=== PATIENT | female | born 1945 | race Caucasian/White ===

== ENCOUNTER 2021-09-05 10:22 | Outpatient (CLI) | payer MEDICARE, OTHER, SELFPAY ==
[2021-09-05 11:58] LABS: Absolute Lymphocyte Count 1.08 X10^3/uL (0.83-4.51); Absolute Neutrophil Count 5.2 X10^3/uL (2.0-7.7); Basophil# 0.06 X10^3/uL; Basophil% 0.9 % (0-1); Eosinophil# 0.09 X10^3/uL; Eosinophils% 1.3 % (0-5); Hematocrit 35.3 % (37-47); Hemoglobin 10.7 g/dL (12.0-15.0); Lymphocyte # 1.08 X10^3/ul (0.83-4.51); Lymphocyte % 15.4 % (19-41); Mean Corp Hgb Conc 30.3 g/dL (32-36); Mean Corpuscular Hgb 23.2 pg (27.0-32.0); Mean Corpuscular Volume 76.4 fL (81-99); Mean Platelet Vol. 11.3 fl (6.2-12.0); Monocyte# 0.55 X10^3/uL; Monocyte% 7.8 % (0-10); NRBC Flagged by Analyzer 0 % (0-5); Neutrophil # 5.21 X10^3/uL (2.7-7.7); Neutrophil % 74.2 % (47-70); Platelet Count 200 K/mm3 (150-450); RBC Distribution Width SD 52.4 fl (35.1-43.9); Red Blood Count 4.62 M/mm3 (4.2-5.4)
[2021-09-05 12:18] LABS: Albumin, Serum 3.3 g/dL (3.2-5.0); Anion Gap 6 (5-15); BUN 19 mg/dL (7-18); BUN/Creat Ratio 23.8 RATIO (10-20); Calcium,Total 9.2 mg/dL (8.5-10.1); Chloride 107 mmol/L (98-107); EST Glomerular Filtration Rate 75 mL/min (>60); Est Glom Filt Rate - Afr Amer 91 mL/min (>60); Glucose 101 mg/dL (74-106); Potassium 4.1 mmol/L (3.5-5.1); Sodium Level 140 mmol/L (136-145)
== END 2021-09-05 23:59 | disposition home or self-care (01) ==
LOC: MTLAB 10:27
PROVIDERS: PCP Internal Medicine; Referring Provider Specialist; Visit Provider Specialist
DX: Z01.812 Encounter for preprocedural laboratory examination (principal); M17.11 Unilateral primary osteoarthritis, right knee
CPT/HCPCS: 36415; 80048; 82040; 85025

== ENCOUNTER 2021-09-19 08:47 | Outpatient (RCR) | payer MEDICARE, OTHER, SELFPAY | END 2021-09-29 23:59 | LOC: DC 08:47 | PROVIDERS: PCP Internal Medicine; Referring Provider Specialist; Visit Provider Specialist | DX: E11.9 Type 2 diabetes mellitus without complications (principal); E66.01 Morbid (severe) obesity due to excess calories; Z68.41 Body mass index [BMI] 40.0-44.9, adult | CPT/HCPCS: 97802 ==

== ENCOUNTER 2021-10-21 14:50 | Outpatient (RCR) | payer MEDICARE, OTHER, SELFPAY | END 2021-10-30 23:59 | LOC: DC 14:50 | PROVIDERS: PCP Internal Medicine; Referring Provider Specialist; Visit Provider Specialist | DX: E11.9 Type 2 diabetes mellitus without complications (principal); E66.01 Morbid (severe) obesity due to excess calories; Z68.41 Body mass index [BMI] 40.0-44.9, adult | CPT/HCPCS: 97803 ==

== ENCOUNTER → 2022-07-10 | Outpatient (CLI) | payer MEDICARE, OTHER, SELFPAY ==
[2022-07-10 12:52] LABS: Synovial Fld Mononuclear WBC # 0.554 10^3/ul; Synovial Fld Mononuclear WBC % 47.3 %; Synovial Fld Polynuclear WBC # 0.618 10^3/uL; Synovial Fld Polynuclear WBC % 52.7 %
[2022-07-10 12:54] LABS: RBC /Synovial Fluid 0.009 10^6/uL (0)
[2022-07-10 13:03] LABS: AUTO B FLUID DILUENT BKGD CT WBC <0.1 RBC <0.01 (W<.1,R<.01); Color / Synovial Fluid Pink (Pale Yellow); Source / Synovial Fluid LEFT KNEE
[2022-07-10 13:04] LABS: Appearance /Synovial Fluid Sl Cl (CLEAR)
[2022-07-10 14:45] LABS: Lymph 1 %; Neutrophil 8 % (0-25); Other Cell /Synovial Fluid 91 %
[2022-07-10 14:47] LABS: Body Fluid QC Type(s) BF1Q
[2022-07-14 09:12] LABS: Pathologist Comment Reviewed
== END | disposition home or self-care (01) ==
LOC: LAB 09:02 → LABSPEC 09:03
PROVIDERS: PCP Internal Medicine; Referring Provider Specialist; Visit Provider Specialist
DX: M25.462 Effusion, left knee (principal); Z96.652 Presence of left artificial knee joint
CPT/HCPCS: 87015; 87070; 87075; 87101; 87116; 87205; 87206; 89050; 89051

== ENCOUNTER 2022-10-29 07:03 | Inpatient (IN) | payer MEDICARE, OTHER, SELFPAY ==
--- NOTE | 2022-10-22 12:42 | PCM.HP.BLA ---
History and Physical History and Physical? Patient Name: Chelsy Noyola : 1945 From:? LEONA GOVEA PA-C? DATE OF PRE-OPERATIVE EXAM: 10/22/2022 DATE OF SURGERY:? 10/29/2022 SCHEDULED PROCEDURE:? Revision left total knee arthroplasty HISTORY OF PRESENT ILLNESS: Preoperative history and physical exam was performed on October 22, 2022.? This is a 77-year-old female who has had problems with her left knee for over 20 years.? Patient has had a previous left total knee arthroplasty by Dr. Jean-Baptiste in 2012.? This was followed by revision surgery in 2013 due to instability with Dr. Garrett.? Patient has had previous bone scan which does show loosening of the components.? She continues to have pain with a dull ache.? Pain is increased with going up and down stairs and walking.? She has difficulty with all activities of daily living such as bathing/showering, getting dressed, housework, shopping.? Patient has been using Tylenol for pain control.? She is unable to use nonsteroidal anti-inflammatories due to previous gastric bypass surgery.? She uses a cane for ambulatory assistance.? She has attempted past physical therapy, home exercises, rest, elevation with minimal relief.? After failing conservative measures and discussing treatment options with Dr. Vern Yo, the patient does wish to proceed with a revision left total knee arthroplasty.? We have obtain surgical clearance from the distillery supervisor Dr. Merritt.? She has history of aortic stenosis.? She has had preoperative workup.? We have also obtain surgical clearance from the primary care physician Dr. Ramirez her last A1c was 6.6.? She denies past history of DVT or pulmonary embolism.? Denies recent chest pain, shortness of breath, fevers chills or recent infections.? Patient lives home alone and is going to require postoperative assistance.? She also reports history of urinary incontinence.? Patient has medical history pertinent for type 2 diabetes mellitus, hypertension, thyroid disease, aortic stenosis, depression, chronic obstructive pulmonary disease REVIEW OF SYSTEMS: Review Of Systems: Constitutional: Denies change in appetite, fever and weight change. Cardiovasular: Reports heart murmur, but denies chest pain and irregular heartbeat. Respiratory: Reports shortness of breath, but denies cough, pneumonia, tuberculosis and wheezing. Gastrointestinal: Reports heartburn, but denies constipation, diarrhea, nausea, rectal itching, bloody stools and vomiting. Musculoskeletal: Reports pain and trouble walking, but denies leg swelling and weakness. Skin: Denies Raynaud's, history of shingles and tattoo. Neurological: Reports ambulatory dysfunction, dizziness, neuropathy, numbness/tingling and tremor. Psychiatric: Reports anxiety and schizophrenia, but denies insomnia and stress. Hematologic/Lymphatic: Reports past transfusion, but denies anemia and bleeding/bruising tendency. Reviewed and updated. PAST MEDICAL HISTORY: Advance Care Plan: Resuscitation, POA Effective Date: 09/05/2021 Past Medical History: Medical Problems: Arthritis, Diabetes, High Blood Pressure, Thyroid Disease Covid- 19 - (05/2021) Chronic Obstructive Pulmonary Disease (COPD), Depression, Aortic stenosis Accidents: None Surgical Hx: Knee Replacement Lt - (2012) KATH[facility]- LT Knee Replacement Revision - (2013) DR. ROSA GARRETT--[facility] Gastric Bypass - (2007) [facility] Anesthesia Complications: None Assistive Devices: Cane, Glasses Reviewed and updated. SOCIAL HISTORY: Social History: Marital: Single.Occupation: Retired.Work Status: Retired.Hand Dominance: Right-handed. Personal Habits:? Cigarette Use: Never Smoked Cigarettes.Smokeless Tobacco: Never Used Smokeless Tobacco.E-Cigarette Use: Never used.Alcohol: Has consumed alcohol in the past.Drug Use: Denies Use.Enjoy Exercising: Exercises 1-3 X/Week. Reviewed, no changes. VITALS: Ht: 66 Wt: 256lb Wt k.122 BMI: 41.3 BP: 128/80 Pulse: 87 Resp: 13 T: 97.6 T: 36.4C Pain Level: 3 O2SatR: 97 ALLERGIES: No Known Drug Allergy? MEDICATIONS: Biotin 10 mg 1 by mouth every day, Vitamin B12 1000 mcg 1 by mouth every day, Vitamin D3 Ultra Strength 125 mcg (5000 Ut) 1po qday, Levothyroxine Sodium 200 mcg takes A total of 250mg once daily, Metformin HCL 500 mg 1 by mouth three times a day, Lisinopril 20 mg 1 by mouth every day, Amlodipine Besylate 5 mg 1 by mouth every day, Ziprasidone HCL 60 mg 1po qday, Januvia 100 mg 1 PO qdaily PRE-OP EXAM:? General appearance:NORMAL? ? ? Other: Eyes: Conjunctivae and lids: NORMAL? Pupils: ERR Ears, Nose, Mouth, and Throat: NORMAL? Other: Inspection of lips, teeth and gums: NORMAL? ?Other: Neck: Examination of neck: no masses noted. Respiratory: Assessment of respiratory effort: NORMAL? ?Other: ?Auscultation of lungs: clear to auscultation no wheezes, rhonchi or rales. Cardiovascular:? Auscultation of heart: regular rate and rhythm, positive systolic murmur PHYSICAL EXAMINATION: Patient does walk with an antalgic gait.? She requires the use of a cane.? Previous incision is well-healed without erythema or signs of infection.? Left knee range of motion: 0 extension 105 flexion with calf to thigh.? She has 3 mm anterior translation and 1-2 mm lateral laxity and medial laxity.? Sensation intact to light touch.? Neurovascularly intact. IMAGING STUDIES: Previous bone scan has concerns for loosening of the implant. Previous left knee x-rays reveal well aligned total knee replacement with well fixed implants.? There is a PS femoral implant cemented with universal tibial baseplate and cemented tibial stem. Synovasure was negative and with aspiration no growth on synovial fluid. IMPRESSION: 1.? 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 Type 2 diabetes mellitus: Last A1c 6.6 3.? Hypertension 4.? Thyroid disease 5.? Chronic obstructive pulmonary disease 6.? Depression 7.? Aortic stenosis 8.? Morbid obesity with BMI 41.3 9. History of Iron Deficiency History and Physical Patient Name: Chelsy Rodeny: 1945 From: LEONA GOVEA PA-C DATE OF PRE-OPERATIVE EXAM: 10/22/2022 DATE OF SURGERY: 10/29/2022 SCHEDULED PROCEDURE: Revision left total knee arthroplasty HISTORY OF PRESENT ILLNESS: Preoperative history and physical exam was performed on October 22, 2022. This is a 77-year-old female who has had problems with her left knee for over 20 years. Patient has had a previous left total knee arthroplasty by Dr. Jean-Baptiste in 2012. This was followed by revision surgery in 2013 due to instability with Dr. Garrett. Patient has had previous bone scan which does show loosening of the components. She continues to have pain with a dull ache. Pain is increased with going up and down stairs and walking. She has difficulty with all activities of daily living such as bathing/showering, getting dressed, housework, shopping. Patient has been using Tylenol for pain control. She is unable to use nonsteroidal anti-inflammatories due to previous gastric bypass surgery. She uses a cane for ambulatory assistance. She has attempted past physical therapy, home exercises, rest, elevation with minimal relief. After failing conservative measures and discussing treatment options with Dr. Vern Yo, the patient does wish to proceed with a revision left total knee arthroplasty. We have obtain surgical clearance from the distillery supervisor Dr. Merritt. She has history of aortic stenosis. She has had preoperative workup. We have also obtain surgical clearance from the primary care physician Dr. Ramirez her last A1c was 6.6. She denies past history of DVT or pulmonary embolism. Denies recent chest pain, shortness of breath, fevers chills or recent infections. Patient lives home alone and is going to require postoperative assistance. She also reports history of urinary incontinence. Patient has medical history pertinent for type 2 diabetes mellitus, hypertension, thyroid disease, aortic stenosis, depression, chronic obstructive pulmonary disease REVIEW OF SYSTEMS: Review Of Systems: Constitutional: Denies change in appetite, fever and weight change. Cardiovasular: Reports heart murmur, but denies chest pain and irregular heartbeat. Respiratory: Reports shortness of breath, but denies cough, pneumonia, tuberculosis and wheezing. Gastrointestinal: Reports heartburn, but denies constipation, diarrhea, nausea, rectal itching, bloody stools and vomiting. Musculoskeletal: Reports pain and trouble walking, but denies leg swelling and weakness. Skin: Denies Raynaud's, history of shingles and tattoo. Neurological: Reports ambulatory dysfunction, dizziness, neuropathy, numbness/tingling and tremor. Psychiatric: Reports anxiety and schizophrenia, but denies insomnia and stress. Hematologic/Lymphatic: Reports past transfusion, but denies anemia and bleeding/bruising tendency. Reviewed and updated. PAST MEDICAL HISTORY: Advance Care Plan: Resuscitation, POA Effective Date: 09/05/2021 Past Medical History: Medical Problems: Arthritis, Diabetes, High Blood Pressure, Thyroid Disease Covid- 19 - (05/2021) Chronic Obstructive Pulmonary Disease (COPD), Depression, Aortic stenosis Accidents: None Surgical Hx: Knee Replacement Lt - (2012) [facility]- LT Knee Replacement Revision - (2013) DR. ROSA GARRETT--[facility] Gastric Bypass - (2007) [facility] Anesthesia Complications: None Assistive Devices: Cane, Glasses Reviewed and updated. SOCIAL HISTORY: Social History: Marital: Single.Occupation: Retired.Work Status: Retired.Hand Dominance: Right-handed. Personal Habits: Cigarette Use: Never Smoked Cigarettes.Smokeless Tobacco: Never Used Smokeless Tobacco.E-Cigarette Use: Never used.Alcohol: Has consumed alcohol in the past.Drug Use: Denies Use.Enjoy Exercising: Exercises 1-3 X/Week. Reviewed, no changes. VITALS: Ht: 66 Wt: 256lb Wt k.122 BMI: 41.3 BP: 128/80 Pulse: 87 Resp: 13 T: 97.6 T: 36.4C Pain Level: 3 O2SatR: 97 ALLERGIES: No Known Drug Allergy MEDICATIONS: Biotin 10 mg 1 by mouth every day, Vitamin B12 1000 mcg 1 by mouth every day, Vitamin D3 Ultra Strength 125 mcg (5000 Ut) 1po qday, Levothyroxine Sodium 200 mcg takes A total of 250mg once daily, Metformin HCL 500 mg 1 by mouth three times a day, Lisinopril 20 mg 1 by mouth every day, Amlodipine Besylate 5 mg 1 by mouth every day, Ziprasidone HCL 60 mg 1po qday, Januvia 100 mg 1 PO qdaily PRE-OP EXAM: General appearance:NORMAL Other: Eyes: Conjunctivae and lids: NORMAL Pupils: ERR Ears, Nose, Mouth, and Throat: NORMAL Other: Inspection of lips, teeth and gums: NORMAL Other: Neck: Examination of neck: no masses noted. Respiratory: Assessment of respiratory effort: NORMAL Other: Auscultation of lungs: clear to auscultation no wheezes, rhonchi or rales. Cardiovascular: Auscultation of heart: regular rate and rhythm, positive systolic murmur PHYSICAL EXAMINATION: Patient does walk with an antalgic gait. She requires the use of a cane. Previous incision is well-healed without erythema or signs of infection. Left knee range of motion: 0 extension 105 flexion with calf to thigh. She has 3 mm anterior translation and 1-2 mm lateral laxity and medial laxity. Sensation intact to light touch. Neurovascularly intact. IMAGING STUDIES: Previous bone scan has concerns for loosening of the implant. Previous left knee x-rays reveal well aligned total knee replacement with well fixed implants. There is a PS femoral implant cemented with universal tibial baseplate and cemented tibial stem. Synovasure was negative and with aspiration no growth on synovial fluid. IMPRESSION: 1. 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 Type 2 diabetes mellitus: Last A1c 6.6 3. Hypertension 4. Thyroid disease 5. Chronic obstructive pulmonary disease 6. Depression 7. Aortic stenosis 8. Morbid obesity with BMI 41.3 9. History of iron deficiency 10. History of bipolar in remission and history of manic depression PLAN: Dr. Vern Yo did discuss and review with the patient all treatment options including surgical versus nonsurgical options. Patient does wish to proceed with the above-stated procedure. Potential risks, benefits, and complications of the procedure were discussed in detail including but not limited to , infection, nerve and blood vessel damage, persistent pain, numbness, tingling, paresthesias, blood clot, pulmonary embolism, and requirement for possible further surgery. The patient expressed full understanding and has no further questions for the doctor. Patient does agree to proceed with the above-stated procedure and has signed the surgery consent form. POST-OP MEDICATION PLAN: Pain Medications: Discussed with the patient that all medications will be discussed upon discharge. Advised her that we will be placing her on an antibiotic upon discharge dependent upon cultures. DVT Prophylaxis: Aspirin 81 mg twice daily for 4 weeks postoperatively. Denies past history of DVT or pulmonary embolism This dictation was created using voice recognition software. Phonetic and/or grammatical errors may exist. ___ I have re-examined the patient. There are no clinical changes since date of exam. ___ See progress notes for changes. ___ Dictated on admission Date: Time: Signature: PLAN: Dr. Vern Yo did discuss and review with the patient all treatment options including surgical versus nonsurgical options.? Patient does wish to proceed with the above-stated procedure.? Potential risks, benefits, and complications of the procedure were discussed in detail including but not limited to , infection, nerve and blood vessel damage, persistent pain, numbness, tingling, paresthesias, blood clot, pulmonary embolism, and requirement for possible further surgery.? The patient expressed full understanding and has no further questions for the doctor.? Patient does agree to proceed with the above-stated procedure and has signed the surgery consent form. POST-OP MEDICATION PLAN: Pain Medications: Discussed with the patient that all medications will be discussed upon discharge.? Advised her that we will be placing her on an antibiotic upon discharge dependent upon cultures.? DVT Prophylaxis:? Aspirin 81 mg twice daily for 4 weeks postoperatively.? Denies past history of DVT or pulmonary embolism This dictation was created using voice recognition software. Phonetic and/or grammatical errors may exist. ___? I have re-examined the patient.? There are no clinical changes since date of exam. ___? See progress notes for changes. ___? Dictated on admission Date: ? ? ?Time: Signature:
[2022-10-29] VITALS (10 sets, daily range): BP systolic 101–148; BP diastolic 39–82; PULSE 70–96; RESP 14–18; TEMP 36.3–37.1; O2SAT 94–100; BMI 41.3; BMI 41.6
[2022-10-29] MEDS: Magnesium 2 GM for ERAS IV (07:57)
[2022-10-29] MEDS: Lactated Ringers 1,000 ML 999 ML IV ×2 (07:57→18:55)
[2022-10-29] MEDS: Acetaminophen 500 MG Tablet 1000 MG PO ×2 (08:18→22:38)
[2022-10-29] MEDS: Gabapentin 600 MG Tablet PO (08:18)
[2022-10-29 08:32] LABS: Bedside Glucose 152 mg/dL (74-106)
[2022-10-29] MEDS: Ipratropium/Albuterol Sulfate 3 ML AMPUL.NEB INHALATION (08:59)
--- NOTE | 2022-10-29 12:04 | NURSING ---
pt aware of surgery delay- helped her to the bathroom - back to bed
--- NOTE | 2022-10-29 14:51 | OP.PCM_ITS ---
Report of Operation Date of Procedure: 10/29/22 Pre-Operative Diagnosis: Painful left total knee replacement, aseptic loosening Post-Operative Diagnosis: Painful left total knee replacement, aseptic loosening Surgery/Procedure Performed:: Revision left total knee replacement Surgeon: Vern Yo cigarette machines mechanic: Evaristo Pablo Type of Anesthesia: General Anesthesiologist: Flavio Lake Special Medications: 2 g Ancef, 1 g TXA at incision, 1 g TXA closure, 10 mg Decadron, joint cocktail (5 mg Duramorph, 30 mL of 0.5% Ropivicaine, 1000 units of epinephrine, 30 mg of Toradol) Specimen's removed: 3 separate specimens were sent to microbiology Estimated Blood Loss (mL): 400 Fluids Replaced: 2500 mL Description of Procedure: Implants used: Femur: Runnemede triathlon size 5 total stabilized left femoral implant with 15 x 100 mm cemented stem, 10 mm distal augments medially and laterally, 5 mm posterior augments medially and laterally Tibia: Runnemede triathlon universal tibial baseplate size 4 with 15 x 50 mm cemented stem. Size C tibial cone Poly: Nati triathlon X3 13 mm TS #4 Procedure: On the date of procedure patient's left lower extremity was marked in the preoperative area. The patient was then taken back to the operating room where the patient was placed on the table in the supine position. All bony prominences were identified a well-padded. Anesthesia assumed control of the C-spine and airway and remained controlled throughout the remainder of the procedure. A tourniquet was placed on the left upper thigh and the leg was prepped in a sterile fashion. The surgeon then scrubbed at this time. Upon reentering the room LEFt lower extremity was draped in a standard orthopedic fashion. A timeout was then called and everyone agreed upon the side, the site, the procedure to be performed, patient's identity and antibiotics given. An Esmarch bandage was used to exsanguinate the extremity and the tourniquet was placed up to 250 mmHg with the knee in flexion. A midline skin incision was made using the previous incision and extending it proximally and distally to identify normal tissue planes. Medial and lateral flaps were developed appropriate releases. The standard medial parapatellar arthrotomy was made and the patella was subluxed laterally. At this time an aggressive synovectomy was performed re-creating the medial gutter first, then the suprapatellar pouch than the lateral gutter. Once this was completed the knee was flexed up an osteotome was used to remove the tibial polyethylene. The remainder of the synovium was debrided. The standard deep MCL release was done and the patella scar pad was resected and lateral releases were performed. Next our attention was directed to the femur. Wear flexible osteotomes and TPS saw were used to break up the implant cement interface. This was done both medi ally and laterally. After this is adequately lucent bone tamp was used to remove the femur component from the end of the bone. This was done with minimal bone loss. At this time attention was now directed towards the proximal tibia. Possible osteotome and TPS saw were then used to break up the proximal tibia implant interface and stacked osteotomes were used to remove the tibial implant. This was done with minimal bone loss. Our attention was then turned to the tibia where the intramedullary canal was reamed to 16 and intramedullary tibial cutting guide was used to make the appropriate tibial cut 90 degrees from the mechanical axis. A drop jayla was then used to verify the cut. A size C tibial base plate was selected. the knee was flexed and the tibial component was pinned into place and the [employer] reamer was used to ream the proximal medullary canal. The trial implant was impacted in its prepared position. Our attention was then turned back to the femur or the femur intramedullary c anal was reamed to 16 mm and the intramedullary reamer was used as a cutting guide to make our distal femoral cut. Distal femoral was made using the standard Runnemede medial epicondyle guiode to set the joint line. Cleanup cut was made we knew we would need a 10 augment medially, and 10 augment laterally. Using the previous femoral component and tibial component as a guide the size 5 4-in-1 femoral cutting guide was pinned into place in the appropriate rotation. Rotation was based on the medial epicondyles and tibial cut. Once this was pinned in place anterior cut, anterior chamfer cut, posterior cut and posterior chamfer cuts were made. Based on these cuts we knew we would need a 5 augment medially, and 5 augment laterally. The box cutting guide was then pinned into place and the box cut was made using a reciprocating saw. The appropriate trials were then placed on the femur and tibia. A trial polyethylene was trialed to ensure proper balancing and stability of the knee. Patella tracking, was then verified and corrected appropriately as needed. Our attention was then directed to the patella. The patella was stably fixed without excessive wear. We elected to keep the patient's patella. Patellar tracking was again checked and deemed appropriate. Final components were verified and opened, 6 liters of normal saline were irrigated throughout the joint under low-pressure lavage. Then the cement was mixed in a vacuum. Nati Simplex cement with tobramycin was used. The wound was copiously irrigated with normal saline. When the cement was ready the components were cemented into place starting with the tibia, we then mixed a second batch of cement to cement the femur. The trial poly component was placed and the knee was placed in full extension. All excess cement was removed in the process. Once the cement had cured the tracking, alignment and balance were verified and a size 13 mm TS polyethylene component was placed. Once the final components were placed hemostasis was obtained and a 3-minute dilute Betadine lavage performed followed by chlorhexidine lavage and finally, the wound was copiously irrigated with normal saline solution and the remainder of the periarticular injection was given. The wound was closed in a layer benitez fashion using #1 vicryl interrupted sutures for the arthrotomy, 2-0 interrupted Vicryl for the subcuticular layer and nylon sutures for final skin closure. A sterile compressive dressing was then placed. The patient was then awakened from anesthesia, transferred to the [facility] and transferred to the PACU for recovery. Post op plan DVT ppx: ASA 81mg BID, thigh high compression stockings Follow up: in office in 2 weeks for wound check PT: to start POD #0 at hospital, outpatient PT should be arranged. Patient replaced on doxycycline 100 mg p.o. twice daily as we follow cultures My physician office manager executive assistant was a vital part of this case. He was important in appropriate retraction during the case, and protection of soft tissues during bony cuts. His intimate knowledge of the case and my steps aided in safe and expedient completion of the procedure as well as appropriate position of the leg during the case. He was also vital in assisting with closure under my direct supervision. Complications No intraoperative complications Admit VTE Documentation VTE Present on Admission: No VTE Mechan Device Prophylaxis: SCD's and Thigh High JOSH Hose VTE Pharm Prophylaxis ordered?: Yes
[2022-10-29] MEDS: Cefazolin 2 GM in 0.9% Normal Saline 100 ML IV (14:54)
[2022-10-29] MEDS: dexAMETHasone 10 MG/ML Vial IV (15:02)
[2022-10-29] MEDS: TXA 1000mg in NS100 100ml (IVPB at Closure) 660 MG IV (17:37)
[2022-10-29] MEDS: TXA 1000mg in NS100 100ml (IVPB at Incision) 660 MG IV (17:37)
[2022-10-29] MEDS: Joint Pain Solution (NO KETOROLAC) IV (17:47)
[2022-10-29 19:20] LABS: Bedside Glucose 267 mg/dL (74-106)
[2022-10-29] MEDS: Insulin Lispro 100 UNIT/ML INSULN.PEN SC ×2 (19:21→22:44)
--- NOTE | 2022-10-29 19:25 | RAD_ITS ---
STUDY: X-RAY - LEFT KNEE REASON FOR EXAM: Female, 77 years old. post op -- AP and Lateral xray of operative knee in PACU TECHNIQUE: 2 view(s) of the knee. COMPARISON: None. FINDINGS: Normal visualized distal femur. Normal visualized proximal tibia and fibula. Normal proximal tibiofibular articulation. Status post recent knee arthroplasty with subcutaneous emphysema.. The soft tissue structures are unremarkable. RAD/Knee 1 or 2 Views IMPRESSION: Status post recent total knee arthroplasty. Electronically Signed: Kunal Irving MD at 19:48 EDT ,
--- NOTE | 2022-10-29 20:56 | PCM.PN.HOSP ---
Reason for Visit Reason for Visit: Diagnoses Encounter for other preprocedural examination (10/29/22) Subjective Subjective Patient is 77-year-old female with a significant history of arthritis;COPD; aortic stenosis; hypertension; diabetes mellitus; hypothyroidism and depression/ mood disorder who is post operative day 0 for a revision of left total knee arthroplasty. Internal medicine service has been consulted for postop med management. Patient complains of postoperative pain of the left knee. Objective Data Objective Data Vital Signs: Vital Signs Temp Pulse Resp BP Pulse Ox O2 Del Method O2 Flow Rate 97.4 F L 86 14 116/46 L 99 Nasal Cannula 4 10/29/22 20:23 10/29/22 20:23 10/29/22 20:23 10/29/22 20:23 10/29/22 20:23 10/29/22 20:23 10/29/22 20:23 Oxygen Flow Rate (L/min) 4 Oxygen Delivery Method Nasal Cannula Weight: 117.072 kg Body Mass Index (BMI) 41.6 Intake & Output: Intake and Output for Last 24 Hours 10/27/22 10/28/22 10/29/22 23:59 23:59 23:59 Intake Total 2214 / 2214 Balance 2214 / 2214 Lab / Micro Data Labs: Laboratory Results - last 24 hr 10/29/22 08:01: POC Glucose 152 H 10/29/22 19:00: POC Glucose 267 H Micro: Microbiology 10/22/22 13:10 Swab (Method) Nasal Screen MRSA/MSSA - Final Radiography Diagnostic Testing: Radiology Impression Knee X-Ray 10/29/22 19:25 IMPRESSION: Status post recent total knee arthroplasty. Electronically Signed: Kunal Irving MD at 19:48 EDT , Physical Exam Narrative Physical exam: General: Well-nourished, well-developed. Head: Normocephalic, atraumatic, no tenderness Eyes: Vision is grossly intact. EOMI ENT, no trauma, moist mucous membranes, no rhinorrhea Neck: Nontender, No thyromegaly. CVS: Regular rate and rhythm. S1-S2 present. No murmur, gallop or rub. Respiratory : clear to auscultation bilaterally, chest wall nontender Abdomen: Soft, nontender, nondistended, normal bowel sounds, no masses : Deferred Back: Nontender, no CVA tenderness. Extremities:Left knee with polar pack. Right knee with no polar pack. Skin: Normal color, no trauma, abrasions Neuro: Alert, oriented, cranial nerves II through XII grossly intact. Psychiatry: Normal mood. Normal affect. Not depressed. Not anxious. Assessment & Plan Assessment/Plan (1) Status post revision of total replacement of left knee: PLAN: Plan Status post revision of the prior placement of left knee Postop day 0 Agrees with Tylenol; oxycodone and morphine. Receiving Doxycycline ordered by orthopedic surgery. Diabetes mellitus Blood glucose is not within goal. Home Tradjenta and metformin continued. Accu-Chek with correction scale insulin ordered by orthopedic surgery, agrees. COPD Stable Hypothyroidism Stable. Synthroid continued Hypertension Stable Amlodipine and lisinopril continued. Trend BP Depression/mood disorder/adjustment failure Leena ordered Stable DVT prophylaxis Receiving aspirin 80 mg twice daily by orthopedic surgery. Time spent in the patient's overall evaluation,decision-making process, review of diagnostic data, adjustment of management, discussion with other providers, nursing nursing and ancillary staff involved in patient's care documentation, 25 minutes. Thank you for the consult. Internal medicine service will continue to follow. Charges/Coding Visit Charges Office Visits / Consults: 11674 OV L3 Est
[2022-10-29 21:47] LABS: Bedside Glucose 280 mg/dL (74-106)
--- NOTE | 2022-10-29 22:31 | NURSING ---
Pt states she is not able to wear sebas hose because of the size of her legs. Pt also states she was told to do bad with therapy so she can go to [facility] in [place]. This RN encouraged pt to do her best with therapy.
[2022-10-29] MEDS: Senna/Docusate Sodium 1 Tablet 2 TABLET PO (22:38)
[2022-10-29] MEDS: Lisinopril 20 MG Tablet PO (22:39)
[2022-10-29] MEDS: Ziprasidone HCl 20 MG Capsule 60 MG PO (22:39)
[2022-10-29 23:11] LABS: Bedside Glucose 296 mg/dL (74-106)
[2022-10-29] MEDS: Cefazolin 1 GM/50 ML BAG IV (23:14)
[2022-10-29] MEDS: Ensure Surgery 237 ML LIQUID PO (23:18)
[2022-10-30] VITALS (7 sets, daily range): BP systolic 106–134; BP diastolic 52–65; PULSE 74–87; RESP 16–18; TEMP 36.4–37; O2SAT 93–98
[2022-10-30] MEDS: Doxycycline 100 MG CAPSULE PO ×3 (01:06→21:08)
[2022-10-30] MEDS: Levothyroxine 125 MCG Tablet 250 MCG PO (05:03)
[2022-10-30] MEDS: Acetaminophen 500 MG Tablet 1000 MG PO ×3 (05:03→21:08)
[2022-10-30] MEDS: Cefazolin 1 GM/50 ML BAG IV (06:08)
[2022-10-30] MEDS: Insulin Lispro 100 UNIT/ML INSULN.PEN SC ×2 (06:40→21:10)
[2022-10-30 06:55] LABS: Hematocrit 27.6 % (37-47); Hemoglobin 8.5 g/dL (12.0-15.0); Mean Corp Hgb Conc 30.8 g/dL (32-36); Mean Corpuscular Hgb 26.6 pg (27.0-32.0); Mean Corpuscular Volume 86.5 fL (81-99); Mean Platelet Vol. 12.6 fl (6.2-12.0); Platelet Count 174 K/mm3 (150-450); RBC Distribution Width CV 14.7 % (11.6-14.6); RBC Distribution Width SD 46.7 fl (35.1-43.9); Red Blood Count 3.19 M/mm3 (4.2-5.4); White Blood Count 13.6 K/mm3 (4.4-11.0)
[2022-10-30 07:02] LABS: Bedside Glucose 304 mg/dL (74-106)
[2022-10-30 07:16] LABS: Anion Gap 3 (5-15); BUN 23 mg/dL (7-18); BUN/Creat Ratio 26.4 RATIO (10-20); Calcium,Total 7.8 mg/dL (8.5-10.1); Chloride 102 mmol/L (98-107); Creatinine, Serum 0.87 mg/dL (0.55-1.02); EST Glomerular Filtration Rate 67 mL/min (>60); Est Glom Filt Rate - Afr Amer 82 mL/min (>60); Glucose 323 mg/dL (74-106); Potassium 4.7 mmol/L (3.5-5.1); Sodium Level 133 mmol/L (136-145)
[2022-10-30] MEDS: Ensure Surgery 237 ML LIQUID PO ×3 (07:48→16:39)
[2022-10-30] MEDS: Cholecalciferol (Vit D3) 125 MCG CAPSULE (5,000 UNITS) PO (07:48)
[2022-10-30] MEDS: Cyanocobalamin 500 MCG Tablet 1000 MCG PO (07:48)
[2022-10-30] MEDS: LINAGLIPTIN 5 MG TABLET PO (07:48)
[2022-10-30] MEDS: Famotidine 20 MG Tablet PO (07:50)
[2022-10-30] MEDS: Senna/Docusate Sodium 1 Tablet 2 TABLET PO ×2 (07:50→21:07)
[2022-10-30] MEDS: metFORMIN HCl 500 MG Tablet PO ×3 (07:50→16:38)
--- NOTE | 2022-10-30 10:52 | PN.HOSP_ITS ---
Reason for Visit Reason for Visit: Diagnoses Encounter for other preprocedural examination (10/29/22) Presence of left artificial knee joint (10/29/22) Subjective Subjective Patient feeling fair, sore but no other acute complaints, passing gas, no chest pain or shortness of breath Objective Data Objective Data Vital Signs: Vital Signs Temp Pulse Resp BP Pulse Ox O2 Del Method O2 Flow Rate 97.5 F L 74 16 106/57 L 95 Room Air 3 10/30/22 08:56 10/30/22 08:56 10/30/22 08:56 10/30/22 08:56 10/30/22 08:56 10/30/22 08:56 10/29/22 22:48 Oxygen Flow Rate (L/min) 3 Oxygen Delivery Method Room Air Weight: 117.072 kg Body Mass Index (BMI) 41.6 Intake & Output: Intake and Output for Last 24 Hours 10/28/22 10/29/22 10/30/22 23:59 23:59 23:59 Intake Total 3484 / 3484 240.25 / 240.25 Balance 3484 / 3484 240.25 / 240.25 Lab / Micro Data 10/30/22 06:10 10/30/22 06:10 Labs: Laboratory Results - last 24 hr 10/29/22 19:00: POC Glucose 267 H 10/29/22 21:25: POC Glucose 280 H 10/29/22 22:37: POC Glucose 296 H 10/30/22 06:10: WBC 13.6 H, RBC 3.19 L, Hgb 8.5 L, Hct 27.6 L, MCV 86.5, MCH 26.6 L, MCHC 30.8 L, RDW Std Deviation 46.7 H, RDW Coeff of Rahel 14.7 H, Plt Count 174, MPV 12.6 H, Sodium 133 L, Potassium 4.7, Chloride 102, Carbon Dioxide 28.0, Anion Gap 3 L, BUN 23 H, Creatinine 0.87, Estim Creat Clear Calc 52.30, Est GFR (MDRD) Af Amer 82, Est GFR (MDRD) Non-Af 67, BUN/Creatinine Ratio 26.4 H , Glucose 323 H, Calcium 7.8 L 10/30/22 06:38: POC Glucose 304 H Micro: Microbiology 10/22/22 13:10 Swab (Method) Nasal Screen MRSA/MSSA - Final Radiography Diagnostic Testing: Radiology Impression Knee X-Ray 10/29/22 19:25 IMPRESSION: Status post recent total knee arthroplasty. Electronically Signed: Kunal Irving MD at 19:48 EDT , Physical Exam Narrative General: Alert, oriented, no apparent distress HEENT: Atraumatic, normocephalic Eyes: Anicteric, normal conjunctiva, extraocular movements grossly intact Neck: Supple Respiratory: Clear to auscultation bilaterally, normal respiratory effort Cardiovascular: Regular rate, systolic ejection murmur to the left of the sternum GI: Soft, nontender, nondistended Extremities: Ice pack on left knee Musculoskeletal: Moving all extremities Neuro: No overt focal neurological deficits Skin: No rashes appreciated Psych: Cooperative Assessment & Plan Assessment/Plan (1) Status post revision of total replacement of left knee: PLAN: Plan #Status post revision of the prior placement of left knee Postop day 0 Agrees with Tylenol; oxycodone and morphine. Receiving Doxycycline ordered by orthopedic surgery. -10/30: Postop day 1, patient to work with physical therapy, ultimately suspect she will need placement. Pain control and doxycycline per primary #Mixed anemia, chronic component of iron deficiency anemia per hx with post op anemia -In physical chart there was a hemoglobin of 12.6 earlier this month and today is 8.5, no active exsanguination noted and patient with no acute complaints -We will check again in the a.m., continue B12, would benefit from iron suppleme ntation as well #Diabetes mellitus type II Blood glucose is not within goal. Home Tradjenta and metformin continued. Accu-Chek with correction scale insulin -10/30: Continue sliding scale and oral medications, was hyperglycemic this morning but may impart be reactive, will consider increasing insulin correction factor if patient continues to be hyperglycemic, may need further adjustments on outpatient basis #COPD Stable #Hypothyroidism Stable. Synthroid continued #Hypertension Stable Amlodipine and lisinopril continued. Trend BP #Depression/mood disorder/adjustment failure Leena ordered Stable DVT prophylaxis Receiving aspirin 80 mg twice daily by orthopedic surgery. Time spent in the patient's overall evaluation,decision-making process, review of diagnostic data, adjustment of management, discussion with other providers, nursing nursing and ancillary staff involved in patient's care documentation, 36 minutes Charges/Coding Visit Charges Inpatient E&M: 23961 Subs Hosp L2
--- NOTE | 2022-10-30 11:20 | CASEMGMT ---
DEA MARTINES Assessment: Face to Face with pt for initial transition planning/care coordination assessment. DEA MARTINES introduced self and role at [facility], pt voices understanding and consents to assessment. Pt is A/O x4 and answers all questions appropriately at this time. Pt sitting up in chair in no distress. Care providers, pharmacy, and demographics verified/updated. Admitting Dx: Left total knee revision PCP:James Specialists:Srinath, ortho; Pollo, cardio; Brent, endo; Zuñiga, psych Preferred Pharmacy: [facility] Retail Insurance: Miriam Noyola dtr Prescription Benefit: yes LNOK: Miriam Noyola dtr Living Arrangements: Pt lives alone in a single story home with 3 steps to enter. Pt reports she was I in ADL's and denies concerns at home. Pt states she cannot return home post surgery prior to rehab. Transportation: Pt drives self and denies concerns with transportation. DME/HHC/SNF: Pt has a grab bar by the toilet and bathtub, bath seat, HH shower, FWW and canes. Pt denies hx of HHC. Pt reports she has been to [facility] after each surgery in the past and would like to return there. Pt is aware that the SW will be made aware of her request for [facility]. Updated . Pt states no further concerns/needs. CM to follow. Advised pt to ask CM if any further question/concerns/needs arise, voices understanding. Pt Goal: SNF- [facility] for therapy Plan: SNF
--- NOTE | 2022-10-30 11:37 | CASEMGMT ---
Discharge Planning Referral sent to [place] via [facility]. Veronica Lyons, Discharge Planning Asst.
[2022-10-30 11:45] LABS: Bedside Glucose 149 mg/dL (74-106)
--- NOTE | 2022-10-30 11:54 | PN.ORTHO_ITS ---
Subjective Subjective The patient was sitting in bedside chair upon examination. Patient denies any chest pain, shortness of breath, dizziness, lightheadedness, nausea or vomiting, or calf pain. Pain is controlled on medications. No adverse overnight events. Patient has worked with physical therapy this morning. She complains of some stability issues with her left knee. She did receive postoperative block. She has also had past history of gastric bypass and is unable to take anti- inflammatories. She has also had history of iron deficiency. She is unable to take oral iron as she does not absorb this very well from her previous gastric bypass. She has had past iron infusions. She has seen a drop in her hemoglobin from 12.6 preoperatively to 8.5 today. Overall her vitals have been stable. She denies any dizziness or lightheadedness when she is up walking. Case was discussed with medicine. Medicine is ordering iron infusion today. We will also begin folic acid. Patient does live home alone and will need assistance upon discharge. She had revision total knee arthroplasty on her left knee. Objective Data Objective Data Vital Signs: Vital Signs Temp Pulse Resp BP Pulse Ox O2 Del Method O2 Flow Rate 97.6 F L 86 16 109/58 L 97 Room Air 3 10/30/22 11:47 10/30/22 11:47 10/30/22 11:47 10/30/22 11:47 10/30/22 11:47 10/30/22 11:47 10/29/22 22:48 Oxygen Flow Rate (L/min) 3 Oxygen Delivery Method Room Air Weight: 117.072 kg Body Mass Index (BMI) 41.6 Intake & Output: Intake and Output for Last 24 Hours 10/28/22 10/29/22 10/30/22 23:59 23:59 23:59 Intake Total 3484 / 3484 240.25 / 240.25 Balance 3484 / 3484 240.25 / 240.25 Lab / Micro Data 10/30/22 06:10 10/30/22 06:10 Labs: Laboratory Results - last 24 hr 10/29/22 19:00: POC Glucose 267 H 10/29/22 21:25: POC Glucose 280 H 10/29/22 22:37: POC Glucose 296 H 10/30/22 06:10: WBC 13.6 H, RBC 3.19 L, Hgb 8.5 L, Hct 27.6 L, MCV 86.5, MCH 26.6 L, MCHC 30.8 L, RDW Std Deviation 46.7 H, RDW Coeff of Rahel 14.7 H, Plt Count 174, MPV 12.6 H, Sodium 133 L, Potassium 4.7, Chloride 102, Carbon Dioxide 28.0, Anion Gap 3 L, BUN 23 H, Creatinine 0.87, Estim Creat Clear Calc 52.30, Est GFR (MDRD) Af Amer 82, Est GFR (MDRD) Non-Af 67, BUN/Creatinine Ratio 26.4 H , Glucose 323 H, Calcium 7.8 L 10/30/22 06:38: POC Glucose 304 H 10/30/22 11:05: POC Glucose 149 H Micro: Microbiology 10/22/22 13:10 Swab (Method) Nasal Screen MRSA/MSSA - Final Radiography Diagnostic Testing: Radiology Impression Knee X-Ray 10/29/22 19:25 IMPRESSION: Status post recent total knee arthroplasty. Electronically Signed: Kunal Irving MD at 19:48 EDT , Physical Exam Narrative Vital signs stable and afebrile. SCDs and JOSH hose are in place bilaterally Patient is able to plantarflex and dorsiflex actively. Sensation is intact to light touch to saphenous, sural, superficial and deep peroneal, and tibial distribution. Dressing is clean dry and intact. Negative Homans bilaterally, negative signs and symptoms of DVT. Const alert, oriented x3 and no apparent distress Assessment & Plan Assessment/Plan (1) Status post revision of total replacement of left knee: PLAN: 1. S/P revision left total knee arthroplasty POD #1 2. Continue Pain Medications: Tylenol and oxycodone. Patient wants to avoid narcotics at all possible. She did have a postoperative block. She has only been using Tylenol as of this time but states the block has not worn off. 3. DVT Prophylaxis: Take 81 mg aspirin twice daily for 4 weeks postoperatively for DVT prophylaxis. Patient denies past history of DVT or pulmonary embolism 4. PT/OT: Weightbearing as tolerated with walker. She does have some feeling of instability with the left knee. This may be associated with the block as well as the revision total knee arthroplasty. We will continue to monitor with physical therapy 5. Lab work has been reviewed. Patient has seen a drop in her hemoglobin from 12.6 to 8.5 postoperatively. She does have history of iron deficiency and has had past infusions. She currently denies any dizziness or lightheadedness. Overall vitals are stable. Case was discussed with medicine. At this time medicine is putting an order for iron infusion. Patient does not absorb oral iron supplements due to past history of gastric bypass. We will add in folic acid. We will continue with repeat lab work while in the hospital. May need to be followed by primary care physician once discharged from hospital. 6. Currently on doxycycline for 2 weeks postoperatively. Microbiology wound and tissue specimens are currently pending. I discussed with the patient potential side effects of doxycycline including sensitivity to the sunlight and increased risk of skin burn. Recommend patient take appropriate precautions. Also recommend patient to take probiotic while on the antibiotic. Patient voiced understanding agreement. 7. Continue postoperative medical management per medicine 8. Encouraged Incentive Spirometry 9. Disposition: Patient is not appropriate for discharge at this time. She also lives home alone and will need assistance upon discharge. Case management currently involved with appropriate discharge planning. We will also have patient continue with physical therapy while in the hospital. Medicine has ordered iron infusion. Folic acid will be ordered. I have reviewed the [place] Automated Rx Reporting System (OARRS) report for this patient for refill pattern and other prescriber involvement as part of the appro priate surveillance for the provision of acute and chronic controlled medications. The report was requested and reviewed on the date of this entry and was considered in the prescribing process. This dictation was created using voice recognition software. Phonetic and/or grammatical errors may exist. (2) Low iron:
[2022-10-30] MEDS: 0.9% Saline Lock 10 ML Syringe IV (12:21)
--- NOTE | 2022-10-30 12:28 | CASEMGMT ---
Social Work SW received referral that pt is requesting to go to [facility] at discharge. SW met with pt and introduced self and role of SW. : A list of SNF providers including quality and resource use data and consistent with the patient?s preferred geographic region, medical needs, and insurance network were provided from the [employer] Guide. Pt preferred provider is [facility]. DC event sales assistant updated and to send referral. Plan: [facility], pending acceptance SARITA Nice
--- NOTE | 2022-10-30 14:44 | CASEMGMT ---
Social Work SW met with pt and discussed advance directives. Pt states she has completed a living will and a health care POA naming her daughter Mriiam. Pt states documents are on file at [facility]. Pt signed a FABIOLA and it was sent to [facility] requesting AD be faxed to [facility]. SARITA Nice
--- NOTE | 2022-10-30 14:49 | CASEMGMT ---
Social Work [facility] is able to accept pt on Thursday. SW met with pt and updated that she can go to [facility] on Thursday. Pt states she will notify her friend who can provide transportation. Plan: [facility] on Thursday SARITA Nice
[2022-10-30 16:18] LABS: Bedside Glucose 173 mg/dL (74-106)
[2022-10-30] MEDS: oxyCODONE 5 MG Tablet PO (16:38)
[2022-10-30] MEDS: Ziprasidone HCl 20 MG Capsule 60 MG PO (21:07)
[2022-10-30] MEDS: Lisinopril 20 MG Tablet PO (21:09)
[2022-10-30 21:38] LABS: Bedside Glucose 192 mg/dL (74-106)
[2022-10-31 02:35] VITALS: BP 118/61; PULSE 87; RESP 18; TEMP 36.6; O2SAT 96
[2022-10-31] MEDS: oxyCODONE 5 MG Tablet PO ×5 (02:41→21:56)
[2022-10-31] MEDS: Levothyroxine 125 MCG Tablet 250 MCG PO (05:08)
[2022-10-31] MEDS: Acetaminophen 500 MG Tablet 1000 MG PO ×3 (06:47→21:57)
--- NOTE | 2022-10-31 06:47 | PN.ORTHO_ITS ---
Subjective Subjective The patient was sitting in bed upon examination. Patient denies any chest pain, shortness of breath, dizziness, lightheadedness, nausea or vomiting, or calf pain. Patient had her IV iron infusion yesterday. I am waiting on lab work this morning. Gram stain's have been without growth however cultures are pending. Patient states the nerve block is worn off and her pain is increased. She is now taking the oxycodone. She also refused the aspirin as she has had past history of gastric bypass. We did get approval for patient to go to [facility]. She is able to be discharged on Thursday. Objective Data Objective Data Vital Signs: Vital Signs Temp Pulse Resp BP Pulse Ox O2 Del Method O2 Flow Rate 97.8 F 87 18 118/61 96 Room Air 3 10/31/22 02:35 10/31/22 02:35 10/31/22 02:35 10/31/22 02:35 10/31/22 02:35 10/31/22 02:35 10/29/22 22:48 Oxygen Flow Rate (L/min) 3 Oxygen Delivery Method Room Air Weight: 117.072 kg Body Mass Index (BMI) 41.6 Intake & Output: Intake and Output for Last 24 Hours 10/29/22 10/30/22 10/31/22 23:59 23:59 23:59 Intake Total 3484 / 3484 910.25 / 910.25 Balance 3484 / 3484 910.25 / 910.25 Lab / Micro Data 10/30/22 06:10 10/30/22 06:10 Labs: Laboratory Results - last 24 hr 10/30/22 06:10: WBC 13.6 H, RBC 3.19 L, Hgb 8.5 L, Hct 27.6 L, MCV 86.5, MCH 26. 6 L, MCHC 30.8 L, RDW Std Deviation 46.7 H, RDW Coeff of Rahel 14.7 H, Plt Count 174, MPV 12.6 H, Sodium 133 L, Potassium 4.7, Chloride 102, Carbon Dioxide 28.0, Anion Gap 3 L, BUN 23 H, Creatinine 0.87, Estim Creat Clear Calc 52.30, Est GFR (MDRD) Af Amer 82, Est GFR (MDRD) Non-Af 67, BUN/Creatinine Ratio 26.4 H, Glucose 323 H, Calcium 7.8 L 10/30/22 06:38: POC Glucose 304 H 10/30/22 11:05: POC Glucose 149 H 10/30/22 15:59: POC Glucose 173 H 10/30/22 21:05: POC Glucose 192 H Micro: Microbiology 10/29/22 18:14 Tissue - Tibial Membrane Gram Stain - Final 10/29/22 18:14 Tissue - Femoral Membrane Gram Stain - Final 10/29/22 18:14 Tissue - Knee Gram Stain - Final 10/22/22 13:10 Swab (Method) Nasal Screen MRSA/MSSA - Final Physical Exam Narrative Vital signs stable and afebrile. SCDs and JOSH hose are in place bilaterally Patient is able to plantarflex and dorsiflex actively. Sensation is intact to light touch to saphenous, sural, superficial and deep peroneal, and tibial distribution. Patient does report neuropathy Dressing is clean dry and intact. Negative Homans bilaterally, negative signs and symptoms of DVT. Const alert, oriented x3 and no apparent distress Assessment & Plan Assessment/Plan (1) Status post revision of total replacement of left knee: PLAN: 1. S/P revision left total knee arthroplasty POD #2 2. Continue Pain Medications: Tylenol and oxycodone. Patient does report the block has worn off. She did not want to use narcotics but I emphasized the importance to make sure her pain is well controlled to proceed with physical therapy. She will take the oxycodone for pain control. 3. DVT Prophylaxis: Patient refused the aspirin for DVT prophylaxis as she has history of gastric bypass. Case was discussed with Dr. Vern Yo. At this time we will switch her over to Xarelto for 2 weeks postoperatively. Discussed with her the potential for increased bleeding on this medication. 4. PT/OT: Weightbearing as tolerated with walker. With therapy patient was ambulating nonconsecutive distances of 175 feet and 15 feet with front 4 wheeled walker. 5. Lab work has been reviewed. Patient had her blood work drawn this morning and I am still awaiting lab results. She did have her IV infusion for iron yesterday. She does have history of iron deficiency and has had past infusions. She currently denies any dizziness or lightheadedness. Overall vitals are stable. May need to be followed by primary care physician once discharged from hospital. 6. Currently on doxycycline for 2 weeks postoperatively. Microbiology wound and tissue specimens were reviewed and no growth or organisms seen on Gram stain. Awaiting cultures which are pending. I discussed with the patient potential side effects of doxycycline including sensitivity to the sunlight and increased risk of skin burn. Recommend patient take appropriate precautions. Also recommend patient to take probiotic while on the antibiotic. Patient voiced understanding agreement. 7. Continue postoperative medical management per medicine 8. Encouraged Incentive Spirometry 9. Disposition: Patient has obtained approval to go to [facility]. She is able to be discharged on Thursday. In the meantime she will continue to focus on physical therapy while in the hospital. DVT prophylaxis was switched. She states she is having more pain now that the block wore off. I emphasized the importance of staying ahead of the pain and she did not want to use narcotics but I do feel this will be necessary due to the extent of the surgery. She voiced understanding. We will continue to follow labs and cultures while in the hospital. Patient may require postoperative follow-up with her primary care physician for the history of the iron deficiency. She had the iron infusion yesterday. She is currently asymptomatic today. Her vitals are stable. I have reviewed the [place] Automated Rx Reporting System (OARRS) report for this patient for refill pattern and other prescriber involvement as part of the appropriate surveillance for the provision of acute and chronic controlled medications. The report was requested and reviewed on the date of this entry and was considered in the prescribing process. This dictation was created using voice recognition software. Phonetic and/or grammatical errors may exist. (2) Low iron:
[2022-10-31] MEDS: Insulin Lispro 100 UNIT/ML INSULN.PEN SC ×4 (06:49→21:55)
[2022-10-31 07:10] LABS: Absolute Lymphocyte Count 0.83 X10^3/uL (0.83-4.51); Absolute Neutrophil Count 10.4 X10^3/uL (2.0-7.7); Basophil# 0.05 X10^3/uL; Basophil% 0.4 % (0-1); Eosinophil# 0.04 X10^3/uL; Eosinophils% 0.3 % (0-5); Hematocrit 26.4 % (37-47); Hemoglobin 8.3 g/dL (12.0-15.0); Lymphocyte # 0.83 X10^3/ul (0.83-4.51); Lymphocyte % 6.8 % (19-41); Mean Corp Hgb Conc 31.4 g/dL (32-36); Mean Corpuscular Hgb 26.9 pg (27.0-32.0); Mean Corpuscular Volume 85.4 fL (81-99); Mean Platelet Vol. 12.3 fl (6.2-12.0); Monocyte# 0.82 X10^3/uL; Monocyte% 6.7 % (0-10); NRBC Flagged by Analyzer 0 % (0-5); Neutrophil # 10.43 X10^3/uL (2.7-7.7); Neutrophil % 85.1 % (47-70); Platelet Count 170 K/mm3 (150-450); RBC Distribution Width CV 15.2 % (11.6-14.6); RBC Distribution Width SD 47.3 fl (35.1-43.9); Red Blood Count 3.09 M/mm3 (4.2-5.4); White Blood Count 12.3 K/mm3 (4.4-11.0)
[2022-10-31 07:18] LABS: Bedside Glucose 187 mg/dL (74-106)
[2022-10-31] MEDS: Lisinopril 20 MG Tablet PO ×2 (07:38→21:56)
[2022-10-31] MEDS: Senna/Docusate Sodium 1 Tablet 2 TABLET PO ×2 (07:38→21:56)
[2022-10-31] MEDS: Famotidine 20 MG Tablet PO (07:38)
[2022-10-31] MEDS: Folic Acid 1 MG Tablet PO (07:38)
[2022-10-31] MEDS: Ensure Surgery 237 ML LIQUID PO ×3 (07:38→16:00)
[2022-10-31] MEDS: LINAGLIPTIN 5 MG TABLET PO (07:38)
[2022-10-31] MEDS: Cyanocobalamin 500 MCG Tablet 1000 MCG PO (07:38)
[2022-10-31] MEDS: Cholecalciferol (Vit D3) 125 MCG CAPSULE (5,000 UNITS) PO (07:38)
[2022-10-31] MEDS: metFORMIN HCl 500 MG Tablet PO ×3 (07:39→16:01)
[2022-10-31] MEDS: amLODIPine 5 MG Tablet PO (07:39)
[2022-10-31] MEDS: Doxycycline 100 MG CAPSULE PO ×2 (07:39→21:56)
[2022-10-31 07:57] LABS: Anion Gap 4 (5-15); BUN 24 mg/dL (7-18); BUN/Creat Ratio 32.3 RATIO (10-20); Calcium,Total 8.1 mg/dL (8.5-10.1); Chloride 104 mmol/L (98-107); Creatinine, Serum 0.74 mg/dL (0.55-1.02); EST Glomerular Filtration Rate 81 mL/min (>60); Est Glom Filt Rate - Afr Amer 98 mL/min (>60); Glucose 201 mg/dL (74-106); Potassium 4.4 mmol/L (3.5-5.1); Sodium Level 135 mmol/L (136-145)
--- NOTE | 2022-10-31 08:27 | PCM.PN.HOSP ---
Reason for Visit Reason for Visit: Diagnoses Iron deficiency (10/29/22) Encounter for other preprocedural examination (10/29/22) Presence of left artificial knee joint (10/29/22) Subjective Subjective Feeling little bit better today, knee sore but no other acute complaints, has had bowel movement Objective Data Objective Data Vital Signs: Vital Signs Temp Pulse Resp BP Pulse Ox O2 Del Method O2 Flow Rate 97.8 F 87 18 118/61 96 Room Air 3 10/31/22 02:35 10/31/22 02:35 10/31/22 02:35 10/31/22 02:35 10/31/22 02:35 10/31/22 02:35 10/29/22 22:48 Oxygen Flow Rate (L/min) 3 Oxygen Delivery Method Room Air Weight: 117.072 kg Body Mass Index (BMI) 41.6 Intake & Output: Intake and Output for Last 24 Hours 10/29/22 10/30/22 10/31/22 23:59 23:59 23:59 Intake Total 3484 / 3484 910.25 / 910.25 Balance 3484 / 3484 910.25 / 910.25 Lab / Micro Data 10/31/22 06:15 10/31/22 06:15 Labs: Laboratory Results - last 24 hr 10/30/22 11:05: POC Glucose 149 H 10/30/22 15:59: POC Glucose 173 H 10/30/22 21:05: POC Glucose 192 H 10/31/22 06:15: WBC 12.3 H, RBC 3.09 L, Hgb 8.3 L, Hct 26.4 L, MCV 85.4, MCH 26.9 L, MCHC 31.4 L, RDW Std Deviation 47.3 H, RDW Coeff of Rahel 15.2 H, Plt Count 170, MPV 12.3 H, Immature Gran % (Auto) 0.700, Neut % (Auto) 85.1 H, Lymph % (Auto) 6.8 L, [place] % (Auto) 6.7, Eos % (Auto) 0.3, Baso % (Auto) 0.4, Absolute Neuts (auto) 10.4 H, Absolute Lymphs (auto) 0.83, Nucleated RBC % 0, Sodium 135 L, Potassium 4.4, Chloride 104, Carbon Dioxide 27.0, Anion Gap 4 L, BUN 24 H, Creatinine 0.74, Estim Creat Clear Calc 45.50, Est GFR (MDRD) Af Amer 98, Est GFR (MDRD) Non-Af 81, BUN/Creatinine Ratio 32.3 H, Glucose 201 H, Calcium 8.1 L 10/31/22 06:46: POC Glucose 187 H Micro: Microbiology 10/29/22 18:14 Tissue - Tibial Membrane Gram Stain - Final 10/29/22 18:14 Tissue - Femoral Membrane Gram Stain - Final 10/29/22 18:14 Tissue - Knee Gram Stain - Final 10/22/22 13:10 Swab (Method) Nasal Screen MRSA/MSSA - Final Physical Exam Narrative General: Alert, oriented, no apparent distress HEENT: Atraumatic, normocephalic Eyes: Anicteric, normal conjunctiva, extraocular movements grossly intact Neck: Supple Respiratory: Clear to auscultation bilaterally, normal respiratory effort Cardiovascular: Regular rate, systolic ejection murmur to the left of the sternum GI: Soft, nontender, nondistended Extremities: Ice pack on left knee Musculoskeletal: Moving all extremities Neuro: No overt focal neurological deficits Skin: No rashes appreciated Psych: Cooperative Assessment & Plan Assessment/Plan (1) Status post revision of total replacement of left knee: PLAN: Plan #Status post revision of the prior placement of left knee Postop day 0 Agrees with Tylenol; oxycodone and morphine. Receiving Doxycycline ordered by orthopedic surgery. -10/30: Postop day 1, patient to work with physical therapy, ultimately suspect she will need placement. Pain control and doxycycline per primary -10/31: Pain control and management per primary. Patient for [facility] on Thursday. On Dox, will be on Xarelto for 2 weeks #Normocytic anemia, chronic component of iron deficiency anemia per hx with post op anemia -In physical chart there was a hemoglobin of 12.6 earlier this month and today is 8.5, no active exsanguination noted and patient with no acute complaints -We will check again in the a.m., continue B12, would benefit from iron supplementation as well -10/31: Agree with B12 and folic acid supplementation, patient revealed she had a gastric bypass and does not absorb iron well so she was given a dose of IV iron, hemoglobin similar to yesterday, continue present management, suspect this will improve slowly over time. Can consider checking iron panel in the future however unlikely to change acute management at this time #History of gastric bypass -Supportive care, B12, folic acid #Diabetes mellitus type II Blood glucose is not within goal. Home Tradjenta and metformin continued. Accu-Chek with correction scale insulin -10/30: Continue sliding scale and oral medications, was hyperglycemic this morning but may impart be reactive, will consider increasing insulin correction factor if patient continues to be hyperglycemic, may need further adjustments on outpatient basis date continue present management #COPD Stable #Hypothyroidism Stable. Synthroid continued #Hypertension Stable Amlodipine and lisinopril continued. Trend BP date well-controlled #Depression/mood disorder/adjustment failure Leena ordered Stable DVT prophylaxis: Xarelto due to patient reporting she is not supposed to take aspirin with her bypass Time spent in the patient's overall evaluation,decision-making process, review of diagnostic data, adjustment of management, discussion with other providers, nursing nursing and ancillary staff involved in patient's care documentation, 36 minutes Charges/Coding Visit Charges Inpatient E&M: 44359 Subs Hosp L2
[2022-10-31 08:46] VITALS: BP 136/51; PULSE 90; RESP 16; TEMP 36.9; O2SAT 94
[2022-10-31 09:54] VITALS: O2SAT 97
[2022-10-31 11:34] VITALS: BP 120/87; PULSE 90; RESP 16; TEMP 37.2; O2SAT 99
[2022-10-31 11:37] LABS: Bedside Glucose 165 mg/dL (74-106)
[2022-10-31 15:13] VITALS: BP 136/59; PULSE 88; RESP 16; TEMP 36.6; O2SAT 98
[2022-10-31] MEDS: Rivaroxaban 10 MG Tablet PO (16:01)
[2022-10-31 16:22] LABS: Bedside Glucose 242 mg/dL (74-106)
--- NOTE | 2022-10-31 18:55 | CASEMGMT ---
Social Work Plan for [facility] at discharge. Confirmed with facility number for report and fax for orders when complete. GREEN sheet on chart for nursing to follow should patient be ready this weekend; anticipating patient to be ready on Thursday. Confirmed with patient she has a friend to transport, and denied need for SW to call any family to update. Patient states has been calling and texting with kids and all are aware of the plan. 7000 convalescent form needs to be completed prior to discharge, but cannot be done until transfer summary is completed. Thursday SW updated. PLAN: Skilled level of care to [place] on a convalescent stay. -JESSICA Barnes
[2022-10-31 20:45] VITALS: BP 142/68; PULSE 93; RESP 16; TEMP 37.1; O2SAT 98
[2022-10-31] MEDS: Ziprasidone HCl 20 MG Capsule 60 MG PO (21:56)
[2022-10-31 22:25] LABS: Bedside Glucose 231 mg/dL (74-106)
[2022-11-01 02:00] VITALS: BP 111/54; PULSE 75; RESP 16; TEMP 36.6; O2SAT 95
[2022-11-01] MEDS: oxyCODONE 5 MG Tablet PO ×3 (02:13→10:26)
[2022-11-01 05:34] LABS: Hematocrit 25.7 % (37-47); Hemoglobin 8.1 g/dL (12.0-15.0); Mean Corp Hgb Conc 31.5 g/dL (32-36); Mean Corpuscular Hgb 27.1 pg (27.0-32.0); Platelet Count 169 K/mm3 (150-450); RBC Distribution Width CV 15.4 % (11.6-14.6); RBC Distribution Width SD 48.4 fl (35.1-43.9); Red Blood Count 2.99 M/mm3 (4.2-5.4); White Blood Count 9.7 K/mm3 (4.4-11.0)
[2022-11-01] MEDS: Levothyroxine 125 MCG Tablet 250 MCG PO (06:15)
[2022-11-01] MEDS: Insulin Lispro 100 UNIT/ML INSULN.PEN SC (06:17)
[2022-11-01 06:38] LABS: Bedside Glucose 171 mg/dL (74-106)
--- NOTE | 2022-11-01 08:21 | PN.ORTHO_ITS ---
Subjective Subjective The patient was sitting in bed upon examination. Patient denies any chest pain, shortness of breath, dizziness, lightheadedness, nausea or vomiting, or calf pain. Pain is controlled on medications. No adverse overnight events. Overall patient appears to be in no distress. She is clinically stable. We have been monitoring her hemoglobin in which she is currently 8.1. She is asymptomatic clinically. She had IV iron. Explained to her that this can take some time to see improvement. Patient's plan is to go to longterm facility [facility]. Patient has been tolerating therapy. She is requesting to have pain medications every 2 hours. Objective Data Objective Data Vital Signs: Vital Signs Temp Pulse Resp BP Pulse Ox O2 Del Method O2 Flow Rate 97.8 F 75 16 111/54 L 95 Room Air 3 11/01/22 02:00 11/01/22 02:00 11/01/22 02:00 11/01/22 02:00 11/01/22 02:00 11/01/22 02:00 10/29/22 22:48 Oxygen Flow Rate (L/min) 3 Oxygen Delivery Method Room Air Weight: 117.072 kg Body Mass Index (BMI) 41.6 Intake & Output: Intake and Output for Last 24 Hours 10/30/22 10/31/22 11/01/22 23:59 23:59 23:59 Intake Total 910.25 / 910.25 950 / 950 Balance 910.25 / 910.25 950 / 950 Lab / Micro Data 11/01/22 04:58 10/31/22 06:15 Labs: Laboratory Results - last 24 hr 10/31/22 11:00: POC Glucose 165 H 10/31/22 15:58: POC Glucose 242 H 10/31/22 21:55: POC Glucose 231 H 11/01/22 04:58: WBC 9.7, RBC 2.99 L, Hgb 8.1 L, Hct 25.7 L, MCV 86.0, MCH 27.1, MCHC 31.5 L, RDW Std Deviation 48.4 H, RDW Coeff of Rahel 15.4 H, Plt Count 169, MPV 12.0 11/01/22 06:14: POC Glucose 171 H Micro: Microbiology 10/29/22 18:14 Tissue - Tibial Membrane Gram Stain - Final 10/29/22 18:14 Tissue - Tibial Membrane Wound Culture - Final No growth aerobically. 10/29/22 18:14 Tissue - Femoral Membrane Gram Stain - Final 10/29/22 18:14 Tissue - Femoral Membrane Wound Culture - Final No growth aerobically. 10/29/22 18:14 Tissue - Knee Gram Stain - Final 10/29/22 18:14 Tissue - Knee Wound Culture - Final No growth aerobically. 10/22/22 13:10 Swab (Method) Nasal Screen MRSA/MSSA - Final Physical Exam Narrative Vital signs stable and afebrile. SCDs are in place bilaterally Patient is able to plantarflex and dorsiflex actively. Sensation is intact to light touch to saphenous, sural, superficial and deep peroneal, and tibial distribution. Dressing is clean dry and intact. Negative Homans bilaterally, negative signs and symptoms of DVT. Const alert, oriented x3 and no apparent distress Assessment & Plan Assessment/Plan (1) Status post revision of total replacement of left knee: PLAN: 1. S/P revision left total knee arthroplasty POD #3 2. Continue Pain Medications: Tylenol and oxycodone. Patient has been taking 1 oxycodone every 4 hours. She is asking to take oxycodone every 2 hours. I instructed her that she can take 1 to 2 tablets every 4 hours and no earlier than that. Patient was not happy 3. DVT Prophylaxis: Patient refused the aspirin for DVT prophylaxis as she has history of gastric bypass. Case was discussed with Dr. Vern Yo. Patient will continue with the Xarelto for 2 weeks postoperatively for DVT prophylaxis. Stop date for the Xarelto will be November 12, 2022. 4. PT/OT: Weightbearing as tolerated with walker. With therapy patient was ambulating nonconsecutive distances of 175 feet and 15 feet with front wheeled walker. 5. Lab work has been reviewed. Normocytic anemia with chronic component of iron deficiency anemia with postop anemia. Today her hemoglobin is 8.1. She did have her IV infusion for iron yesterday. She does have history of iron deficiency and has had past infusions. She currently denies any dizziness or lightheadedness. Overall vitals are stable. I did recommend with the patient that she should follow-up with her primary care physician for continued monitoring and management. We will repeat lab work in 5 days at the [facility]. 6. Currently on doxycycline for 2 weeks postoperatively. Microbiology wound and tissue specimens were reviewed and no growth or organisms seen on Gram stain. Awaiting cultures which are pending. I discussed with the patient potential side effects of doxycycline including sensitivity to the sunlight and increased risk of skin burn. Recommend patient take appropriate precautions. Also recommend patient to take probiotic while on the antibiotic. Patient voiced understanding agreement. 7. Continue postoperative medical management per medicine 8. Encouraged Incentive Spirometry 9. Disposition: Patient has approval to be discharged today to longterm facility at [facility]. Medically she has been stable. Case was discussed with medicine today and they are okay with her being discharged. There will take time for the iron infusion to take effect. We recommend continued follow-up with lab work and eventual follow-up upon discharge from longterm [facility] for rehab medicine with her primary care physician. We will repeat lab work in 5 days. She will continue with B12 and folic acid. Patient will vamsi nue above pain regimen with the Tylenol and as needed oxycodone. She is on Xarelto with stop date November 12, 2022. She is unable to take aspirin due to her previous gastric bypass. She will follow-up per postoperative instructions. Patient will need to keep her 2-week follow-up with [facility] for x-rays and suture removal. Continue with walker for ambulatory assistance. Patient was advised to contact her office with any complications postoperatively. She voiced understanding agreement with treatment plan. I have reviewed the [place] Automated Rx Reporting System (OARRS) report for this patient for refill pattern and other prescriber involvement as part of the appropriate surveillance for the provision of acute and chronic controlled medications. The report was requested and reviewed on the date of this entry and was considered in the prescribing process. This dictation was created using voice recognition software. Phonetic and/or grammatical errors may exist. (2) Low iron:
--- NOTE | 2022-11-01 08:39 | PCM.TXEXTCAR ---
Diet Diet Order/Speech Therapy: 10/29/22 22:04 Diet: Cardiac: Calorie-Controlled Is pt able to select menu?: Yes How many daily calories?: 1800 calorie Routine Orders/Code Status Routine Lab Work: CBC (Repeat CBC November 05, 2022) Wound(s) L KNEE: Wound Type: Surgical Incision (Remove dressing on November 03, 2022. Okay to shower with Mepilex dressing. Once removed only use soap and water on incision for 6 weeks postoperatively) Therapies Weight Bearing: Weight bearing as tolerated (With walker) Extremity Affected:: Left Lower Physical Therapy: Eval and Treat (Weightbearing as tolerated with walker.) Problem/Diagnosis (1) Status post revision of total replacement of left knee: Status: Acute Code(s): Z96.652 - Presence of left artificial knee joint Plan: 1. S/P revision left total knee arthroplasty POD #3 2. Continue Pain Medications: Tylenol and oxycodone. Patient has been taking 1 oxycodone every 4 hours. She is asking to take oxycodone every 2 hours. I instructed her that she can take 1 to 2 tablets every 4 hours and no earlier than that. Patient was not happy 3. DVT Prophylaxis: Patient refused the aspirin for DVT prophylaxis as she has history of gastric bypass. Case was discussed with Dr. Vern Yo. Patient will continue with the Xarelto for 2 weeks postoperatively for DVT prophylaxis. Stop date for the Xarelto will be November 12, 2022. 4. PT/OT: Weightbearing as tolerated with walker. With therapy patient was ambulating nonconsecutive distances of 175 feet and 15 feet with front wheeled walker. 5. Lab work has been reviewed. Normocytic anemia with chronic component of iron deficiency anemia with postop anemia. Today her hemoglobin is 8.1. She did have her IV infusion for iron yesterday. She does have history of iron deficiency and has had past infusions. She currently denies any dizziness or lightheadedness. Overall vitals are stable. I did recommend with the patient that she should follow-up with her primary care physician for continued monitoring and management. We will repeat lab work in 5 days at the longterm. 6. Currently on doxycycline for 2 weeks postoperatively. Microbiology wound and tissue specimens were reviewed and no growth or organisms seen on Gram stain. Awaiting cultures which are pending. I discussed with the patient potential side effects of doxycycline including sensitivity to the sunlight and increased risk of skin burn. Recommend patient take appropriate precautions. Also recommend patient to take probiotic while on the antibiotic. Patient voiced understanding agreement. 7. Continue postoperative medical management per medicine 8. Encouraged Incentive Spirometry 9. Disposition: Patient has approval to be discharged today to fpc facility at [facility]. Medically she has been stable. Case was discussed with medicine today and they are okay with her being discharged. There will take time for the iron infusion to take effect. We recommend continued follow-up with lab work and eventual follow-up upon discharge from fpc facility with her primary care physician. We will repeat lab work in 5 days. She will continue with B12 and folic acid. Patient will continue above pain regimen with the Tylenol and as needed oxycodone. She is on Xarelto with stop date November 12, 2022. She is unable to take aspirin due to her previous gastric bypass. She will follow-up per postoperative instructions. Patient will need to keep her 2-week follow-up with [place] for x-rays and suture removal. Continue with walker for ambulatory assistance. Patient was advised to contact her office with any complications postoperatively. She voiced understanding agreement with treatment plan. I have reviewed the [place] Automated Rx Reporting System (OARRS) report for this patient for refill pattern and other prescriber involvement as part of the appropriate surveillance for the provision of acute and chronic controlled medications. The report was requested and reviewed on the date of this entry and was considered in the prescribing process. This dictation was created using voice recognition software. Phonetic and/or grammatical errors may exist. (2) Low iron: Status: Acute Code(s): E61.1 - Iron deficiency Comment: IN THE PAST, LAST IRON INFUSION 01/2022 Allergies/Procedures Done in Hospital Allergies No Known Allergies Allergy (Verified 10/29/22 07:46) Procedures: None (Revision left total knee arthroplasty) Type of Care/Length of Stay Estimated LOS: Convalescent Care Less Than 30 days Type of Care Needed: Skilled Rehab Potential: Good Prognosis: Good Additional Orders/Day of Discharge Additional Orders: Upon discharge from fpc facility patient will require medications: 1. DVT prophylaxis with the Xarelto stop date on November 12, 2022 2. Doxycycline will also need to be is prescribed with stop date November 12, 2022. Day of Discharge: 11/01/22 Dietary and Speech Recommendations Dietitian Recommendations/Changes: Continue 1800 CCD/Cardiac diet to manage medical conditions. Continue 237mL Ensure Surgery TID to help with healing s/p surgery. Discharge Plan Admission Admit Date/Time: 10/29/22 07:03 Attending Provider: Vern Yo Primary Care Provider: Olga Lidia Ramirez Consulting Providers: Josh Preciado; Lina Killian; Lina David; Cathy Hernandez Discharge Orders/Prescriptions Prescriptions: New acetaminophen 500 mg Tablet 1,000 mg PO Q8 Qty: 0 0RF Rx Instructions: Do not take more than 3000 mg Tylenol in a 24-hour period. doxycycline monohydrate 100 mg Capsule 100 mg PO BID Qty: 0 0RF Rx Instructions: Take for 2 weeks postoperatively while following cultures with stop date on November 12, 2022 folic acid 1 mg Tablet 1 mg PO BREAKFAST 14 Days Qty: 0 0RF oxycodone 5 mg Tablet 5 - 10 mg PO Q4H PRN PRN (Reason: Pain Score 4-10) 5 Days Qty: 30 0RF Xarelto 10 mg Tablet 10 mg PO DINNER Qty: 0 0RF Rx Instructions: Take for 2 weeks postoperatively for DVT prophylaxis. Stop date November 12, 2022 Continued biotin 10 mg tablet 10 mg PO DAILY mecobalamin (vitamin B12) 1,000 mcg tablet,chewable 1,000 mcg PO DAILY cholecalciferol (vitamin D3) [Vitamin D3] 125 mcg (5,000 unit) tablet 125 mcg PO DAILY levothyroxine [Euthyrox] 175 mcg tablet 250 mcg PO DAILY Patient Comments: TAKE 1 TABLET BY MOUTH ONCE DAILY metformin 1,000 mg tablet 500 mg PO TID Patient Comments: TAKE 1 TABLET BY MOUTH TWICE DAILY AND 1/2 (ONE-HALF) WITH LUNCH lisinopril 20 mg tablet 20 mg PO BID Patient Comments: TAKE 1 TABLET BY MOUTH TWICE DAILY amlodipine 5 mg tablet 5 mg PO DAILY Patient Comments: TAKE 1 TABLET BY MOUTH ONCE DAILY ziprasidone HCl 60 mg capsule 60 mg PO QHS Patient Comments: TAKE 1 CAPSULE BY MOUTH AT BEDTIME WITH FOOD Januvia 100 mg tablet 50 mg PO DAILY Patient Comments: TAKE 1 TABLET BY MOUTH ONCE DAILY Referrals / Follow Up: Olga Lidia Ramirez, [Primary Care Provider] - (Will require follow up with PCP in 2 weeks) Evaristo Pablo PA-C [Med Staff - Adv Practice Prof] - 11/13/22 3:15 pm Disposition Disposition (needs filled in before D/C Order can be placed): Longterm Facility
--- NOTE | 2022-11-01 08:51 | DS.PCM_ITS ---
Providers Date of Admission: 10/29/22 Date of Discharge: 11/01/22 Primary Care Physician: Dr. Olga Lidia Ramirez, DO Consultations 10/29/22 07:19 Consult: Hospitalist Routine Consulting Provider: [facility] Reason for Consult: post op med management EMERGENT Consult: No MD Notified: Yes Date Notified: 10/29/22 Time Notified: 07:19 Method of Notification: Text Reason For Visit: LEFT TOTAL KNEE REVISION Diagnosis Discharge Diagnosis (1) Status post revision of total replacement of left knee: Status: Acute Code(s): Z96.652 - Presence of left artificial knee joint Plan: 1. S/P revision left total knee arthroplasty POD #3 2. Continue Pain Medications: Tylenol and oxycodone. Patient has been taking 1 oxycodone every 4 hours. She is asking to take oxycodone every 2 hours. I instructed her that she can take 1 to 2 tablets every 4 hours and no earlier than that. Patient was not happy 3. DVT Prophylaxis: Patient refused the aspirin for DVT prophylaxis as she has history of gastric bypass. Case was discussed with Dr. Vern Yo. Patient will continue with the Xarelto for 2 weeks postoperatively for DVT prophylaxis. Stop date for the Xarelto will be November 12, 2022. 4. PT/OT: Weightbearing as tolerated with walker. With therapy patient was ambulating nonconsecutive distances of 175 feet and 15 feet with front wheeled walker. 5. Lab work has been reviewed. Normocytic anemia with chronic component of iron deficiency anemia with postop anemia. Today her hemoglobin is 8.1. She did have her IV infusion for iron yesterday. She does have history of iron deficiency and has had past infusions. She currently denies any dizziness or lightheadedness. Overall vitals are stable. I did recommend with the patient that she should follow-up with her primary care physician for continued monitori ng and management. We will repeat lab work in 5 days at the [place] [facility]. 6. Currently on doxycycline for 2 weeks postoperatively. Microbiology wound and tissue specimens were reviewed and no growth or organisms seen on Gram stain. Awaiting cultures which are pending. I discussed with the patient potential side effects of doxycycline including sensitivity to the sunlight and increased risk of skin burn. Recommend patient take appropriate precautions. Also recommend patient to take probiotic while on the antibiotic. Patient voiced understanding agreement. 7. Continue postoperative medical management per medicine 8. Encouraged Incentive Spirometry 9. Disposition: Patient has approval to be discharged today to longterm facility at [facility]. Medically she has been stable. Case was discussed with medicine today and they are okay with her being discharged. There will take time for the iron infusion to take effect. We recommend continued follow-up with lab work and eventual follow-up upon discharge from longterm facility with her primary care physician. We will repeat lab work in 5 days. She will continue with B12 and folic acid. Patient will con tinue above pain regimen with the Tylenol and as needed oxycodone. She is on Xarelto with stop date November 12, 2022. She is unable to take aspirin due to her previous gastric bypass. She will follow-up per postoperative instructions. Patient will need to keep her 2-week follow-up with [facility] for x-rays and suture removal. Continue with walker for ambulatory assistance. Patient was advised to contact her office with any complications postoperatively. She voiced understanding agreement with treatment plan. I have reviewed the [place] Automated Rx Reporting System (OARRS) report for this patient for refill pattern and other prescriber involvement as part of the appropriate surveillance for the provision of acute and chronic controlled medications. The report was requested and reviewed on the date of this entry and was considered in the prescribing process. This dictation was created using voice recognition software. Phonetic and/or grammatical errors may exist. (2) Low iron: Status: Acute Code(s): E61.1 - Iron deficiency Medications at Discharge Home Medications amlodipine 5 mg tablet 5 mg PO DAILY HYPERTENSION 10/03/22 biotin 10 mg tablet 10 mg PO DAILY VITAMIN 10/03/22 cholecalciferol (vitamin D3) 125 mcg (5,000 unit) tablet (Vitamin D3) 125 mcg PO DAILY VITAMIN 10/03/22 levothyroxine 175 mcg tablet (Euthyrox) 250 mcg PO DAILY HYPOTHYROID 10/03/22 lisinopril 20 mg tablet 20 mg PO BID HYPERTENSION 10/03/22 mecobalamin (vitamin B12) 1,000 mcg chewable tablet 1,000 mcg PO DAILY VITAMIN 10/03/22 metformin 1,000 mg tablet 500 mg PO TID HYPERGLYCEMIA 10/03/22 sitagliptin phosphate 100 mg tablet (Januvia) 50 mg PO DAILY DIABETES 10/03/22 ziprasidone HCl 60 mg capsule 60 mg PO QHS MOOD 10/03/22 acetaminophen 500 mg tablet 1,000 mg (2 x 500 mg) PO Q8 #0 tabs 11/01/22 doxycycline monohydrate 100 mg capsule 100 mg PO BID #0 caps 11/01/22 folic acid 1 mg tablet 1 mg PO BREAKFAST 14 days #0 tabs 11/01/22 oxycodone 5 mg tablet 5 - 10 mg (1 - 2 x 5 mg) PO Q4H PRN PRN Pain Score 4-10 5 days #30 tabs 11/01/22 rivaroxaban 10 mg tablet (Xarelto) 10 mg PO DINNER #0 tabs 11/01/22 Hospital Course Summary of Care Provided Hospital Course: Patient is a 77-year-old female who had previous left total knee arthroplasty by Dr. Jean-Baptiste in 2012. This was followed by a revision surgery in 2013 due to instability with Dr. Hankins. She had bone scan which did reveal loosening of the components. She continued to have pain with the left knee. She failed conservative measures. After failing conservative measures, the patient opted to proceed with a revision left total knee arthroplasty. The patient underwent the above-stated procedure on October 29, 2022. Patient did receive per ioperative antibiotics. Intraoperatively was uneventful. For details please see dictated operative note. The patient was placed in thigh-high teds, bilateral SCDs, remained stable in recovery. Patient was admitted to the 3rd floor at [facility]. The patient's pain was managed with the use of IV and p.o. pain medications. Patient participated in physical therapy. Patient was discharged on postoperative day #3 to longterm facility [facility]. While in the hospital she did have drop in her hemoglobin in which she does have past history of iron deficiency. Medicine had patient do IV iron while in the hospital. We have followed lab work and patient has been stable with her last hemoglobin at 8.1. She was asymptomatic. Plan will be for patient to get r epeat lab work at longterm [facility]. Ultimately she will need follow-up with her primary care physician for further work-up and treatment. Patient also had cultures intraoperatively which we have followed which have been negative and patient will continue with doxycycline for 2 weeks postoperatively. Due to her gastric bypass and unable to take NSAIDs patient is currently on Xarelto for 2 weeks postoperatively for DVT prophylaxis. Patient was given medications stated below. Patient will follow up with [facility] per postop instructions for reassessment. Weight / BMI Weight Weight: 117.072 kg Body Mass Index (BMI) 41.6 ABG / Lab / Microbiology Data 11/01/22 04:58 10/31/22 06:15 Laboratory: Laboratory Results - last 24 hr 10/31/22 11:00: POC Glucose 165 H 10/31/22 15:58: POC Glucose 242 H 10/31/22 21:55: POC Glucose 231 H 11/01/22 04:58: WBC 9.7, RBC 2.99 L, Hgb 8.1 L, Hct 25.7 L, MCV 86.0, MCH 27.1, MCHC 31.5 L, RDW Std Deviation 48.4 H, RDW Coeff of Rahel 15.4 H, Plt Count 169, MPV 12.0 11/01/22 06:14: POC Glucose 171 H Microbiology: Microbiology 10/29/22 18:14 Tissue - Tibial Membrane Gram Stain - Final 10/29/22 18:14 Tissue - Tibial Membrane Wound Culture - Final No growth aerobically. 10/29/22 18:14 Tissue - Femoral Membrane Gram Stain - Final 10/29/22 18:14 Tissue - Femoral Membrane Wound Culture - Final No growth aerobically. 10/29/22 18:14 Tissue - Knee Gram Stain - Final 10/29/22 18:14 Tissue - Knee Wound Culture - Final No growth aerobically. 10/22/22 13:10 Swab (Method) Nasal Screen MRSA/MSSA - Final Meaningful Use Info Meaningful Use Diagnoses (Choose all that apply): None applicable Discharge Plan Admission Admit Date/Time: 10/29/22 07:03 Attending Provider: Vern Yo Primary Care Provider: Olga Lidia Ramirez Consulting Providers: Josh Preciado; Lina Killian; Lina David; Cathy Hernandez Discharge Orders/Prescriptions Prescriptions: New acetaminophen 500 mg Tablet 1,000 mg PO Q8 Qty: 0 0RF Rx Instructions: Do not take more than 3000 mg Tylenol in a 24-hour period. doxycycline monohydrate 100 mg Capsule 100 mg PO BID Qty: 0 0RF Rx Instructions: Take for 2 weeks postoperatively while following cultures with stop date on November 12, 2022 folic acid 1 mg Tablet 1 mg PO BREAKFAST 14 Days Qty: 0 0RF oxycodone 5 mg Tablet 5 - 10 mg PO Q4H PRN PRN (Reason: Pain Score 4-10) 5 Days Qty: 30 0RF Xarelto 10 mg Tablet 10 mg PO DINNER Qty: 0 0RF Rx Instructions: Take for 2 weeks postoperatively for DVT prophylaxis. Stop date November 12, 2022 Continued biotin 10 mg tablet 10 mg PO DAILY mecobalamin (vitamin B12) 1,000 mcg tablet,chewable 1,000 mcg PO DAILY cholecalciferol (vitamin D3) [Vitamin D3] 125 mcg (5,000 unit) tablet 125 mcg PO DAILY levothyroxine [Euthyrox] 175 mcg tablet 250 mcg PO DAILY Patient Comments: TAKE 1 TABLET BY MOUTH ONCE DAILY metformin 1,000 mg tablet 500 mg PO TID Patient Comments: TAKE 1 TABLET BY MOUTH TWICE DAILY AND 1/2 (ONE-HALF) WITH LUNCH lisinopril 20 mg tablet 20 mg PO BID Patient Comments: TAKE 1 TABLET BY MOUTH TWICE DAILY amlodipine 5 mg tablet 5 mg PO DAILY Patient Comments: TAKE 1 TABLET BY MOUTH ONCE DAILY ziprasidone HCl 60 mg capsule 60 mg PO QHS Patient Comments: TAKE 1 CAPSULE BY MOUTH AT BEDTIME WITH FOOD Januvia 100 mg tablet 50 mg PO DAILY Patient Comments: TAKE 1 TABLET BY MOUTH ONCE DAILY Referrals / Follow Up: Olga Lidia Ramirez DO [Primary Care Provider] - (Will require follow up with PCP in 2 weeks) Evaristo Pablo PA-C [Med Staff - Adv Practice Prof] - 11/13/22 3:15 pm Disposition Disposition (needs filled in before D/C Order can be placed): [facility]
[2022-11-01] MEDS: metFORMIN HCl 500 MG Tablet PO (08:56)
[2022-11-01] MEDS: Folic Acid 1 MG Tablet PO (08:56)
[2022-11-01 09:02] VITALS: BP 129/55; PULSE 98; RESP 18; TEMP 36.9; O2SAT 96
[2022-11-01] MEDS: Senna/Docusate Sodium 1 Tablet 2 TABLET PO (09:12)
[2022-11-01] MEDS: LINAGLIPTIN 5 MG TABLET PO (09:12)
[2022-11-01] MEDS: Cyanocobalamin 500 MCG Tablet 1000 MCG PO (09:12)
[2022-11-01] MEDS: Famotidine 20 MG Tablet PO (09:13)
[2022-11-01] MEDS: Cholecalciferol (Vit D3) 125 MCG CAPSULE (5,000 UNITS) PO (09:13)
[2022-11-01] MEDS: Lisinopril 20 MG Tablet PO (09:13)
[2022-11-01] MEDS: amLODIPine 5 MG Tablet PO (09:14)
[2022-11-01] MEDS: Doxycycline 100 MG CAPSULE PO (10:26)
--- NOTE | 2022-11-01 11:32 | CASEMGMT ---
Social Work Patient had requested to speak with SW. SW introduced self and role to patient. Patient is asking about a paper they want signed and is concerned about payment for SNF. SW explained process and approval by insurance. Pt reports understanding. Pt to be transported to [place] via a friend pending discharge. 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
--- NOTE | 2022-11-01 11:33 | NURSING ---
REPORT CALLED SABINE AT [facility]
== END 2022-11-01 11:40 | disposition skilled nursing facility (03) | DRG 467 ==
LOC: ACINP 11:45 → MS3 10-30 07:01
PROVIDERS: Internal Medicine; Physician Assistant Surgical; Admitting Provider Specialist; PCP Internal Medicine; Referring Provider Specialist; Visit Provider Specialist
PROC: 0SRD0J9 Replacement of Left Knee Joint with Synthetic Substitute, Cemented, Open Approach (ICD-10-PCS; principal; 2022-10-29 11:35)
DX: T84.033A Mechanical loosening of internal left knee prosthetic joint, initial encounter (principal); Z68.41 Body mass index [BMI] 40.0-44.9, adult; D62 Acute posthemorrhagic anemia; T84.84XA Pain due to internal orthopedic prosthetic devices, implants and grafts, initial encounter; E11.65 Type 2 diabetes mellitus with hyperglycemia; D50.9 Iron deficiency anemia, unspecified; E03.9 Hypothyroidism, unspecified; J44.9 Chronic obstructive pulmonary disease, unspecified; F20.9 Schizophrenia, unspecified; E66.01 Morbid (severe) obesity due to excess calories; I35.0 Nonrheumatic aortic (valve) stenosis; I10 Essential (primary) hypertension; F32.A Depression, unspecified; M25.362 Other instability, left knee; Y83.1 Surgical operation with implant of artificial internal device as the cause of abnormal reaction of the patient, or of later complication, without mention of misadventure at the time of the procedure; R32 Unspecified urinary incontinence; Z79.84 Long term (current) use of oral hypoglycemic drugs; Z79.01 Long term (current) use of anticoagulants; Z79.890 Hormone replacement therapy; Z98.84 Bariatric surgery status
CPT/HCPCS: 36415; 73560; 80048; 82962; 85025; 85027; 87015; 87070; 87075; 87081; 87102; 87116; 87176; 87205; 87206; 94640; 94668; 97110; 97116; 97162; 97166; 97530; 97535; 99252; C1776; J7050; J7120; A4216; G0463; J2405; J2916